=== PATIENT | female | born 1975 | race Caucasian/White ===

== ENCOUNTER → 2019-10-18 | Outpatient (CLI) | payer BC ==
--- NOTE | 2019-10-18 12:39 | Diagnostic Imaging Report ---
INDICATION: Digital 2-D and 3-D screening mammography with CAD. COMPARISON: 04/23/2015 and 03/21/2014. FINDINGS: Subpectoral implants noted. There are scattered fibroglandular densities in the breasts. There is no mass or architectural distortion or suspicious calcifications. IMPRESSION: Stable negative mammograms. BI-RADS Category 1 ACR BI-RADS Category 1: Negative. Result letter will be mailed to the patient. Note: At least 10% of breast cancer is not imaged by mammography. Dictated by: Dictated on workstation # [id number]
== END ==
LOC: RAD 10:01
PROVIDERS: ATTEND Obstetrics & Gynecology
DX: Z12.31 Encounter for screening mammogram for malignant neoplasm of breast (principal)
CPT/HCPCS: 77063; 77067

== ENCOUNTER 2019-12-03 05:34 | Outpatient (RCR) | payer BC ==
[~2019-12-03] VITALS: Ht 172 cm; Wt 150.0 kg
[~2019-12-03 05:34] MED LIST: ATOR10TA PO; BUPR100T15 PO; IBUP-2185 PO; NAPR220C11 PO; NORG1TAB87 PO
[2019-12-05] MEDS ORDERED: IBUP-1780 PO (12:49)
[2019-12-05] MEDS ORDERED: ESTR1TAB27 PO (12:49)
[2019-12-05] MEDS ORDERED: DOCU-143 PO (12:49)
[2019-12-05] MEDS ORDERED: OXYC1TAB87 PO (12:49)
== END 2019-12-03 11:11 | disposition home or self-care (01) ==
LOC: PREOP 05:34
PROVIDERS: ATTEND Obstetrics & Gynecology
DX: Z01.812 Encounter for preprocedural laboratory examination (principal); N92.0 Excessive and frequent menstruation with regular cycle; D64.9 Anemia, unspecified; Z20.828 Contact with and (suspected) exposure to other viral communicable diseases
CPT/HCPCS: 87635

== ENCOUNTER 2019-12-05 11:08 | Day surgery (SDC) | payer BC ==
[2019-12-05] VITALS (9 sets, daily range): BP systolic 129–148; BP diastolic 83–100
[2019-12-05] MEDS ORDERED: MIDAZOLAM 2 MG/2 ML (VERSED) VIAL ONE (11:46)
[2019-12-05] MEDS ORDERED: fentaNYL INJECTION 100 MCG/2 ML AMP ONE (11:46)
[2019-12-05] MEDS ORDERED: LACTATED RINGERS 1,000 ML IV PRN (11:46)
[2019-12-05] MEDS ORDERED: LIDOCAINE PF 2% 5 ML (XYLOCAINE) VIAL ONE ×2 (11:46→11:50)
[2019-12-05] MEDS ORDERED: proPOfol 200 MG/20 ML (DIPRIVAN) VIAL IV ONE (11:50)
[2019-12-05 11:51] LABS: BASOPHILS % (AUTO) 1 % (0-10); EOSINOPHILS # (AUTO) 0.2 10^3/uL (0.0-0.3); EOSINOPHILS % (AUTO) 3 % (0-10); HEMATOCRIT 44 % (35-52); HEMOGLOBIN 14.5 G/DL (11.5-16.0); LYMPHOCYTES # (AUTO) 1.8 X 10^3 (1.0-4.0); LYMPHOCYTES % (AUTO) 30 % (12-44); MEAN CORPUSCULAR HEMOGLOBIN 30 PG (25-34); MEAN CORPUSCULAR HGB CONC 33 G/DL (32-36); MEAN CORPUSCULAR VOLUME 90 FL (80-99); MEAN PLATELET VOLUME 11.1 FL (7.4-10.4); MONOCYTES # (AUTO) 0.3 X 10^3 (0.0-1.0); MONOCYTES % (AUTO) 6 % (0-12); NEUTROPHILS # (AUTO) 3.7 X 10^3 (1.8-7.8); NEUTROPHILS % (AUTO) 61 % (42-75); PLATELET COUNT 217 10^3/uL (130-400)
[2019-12-05] MEDS ORDERED: ceFAZolin INJECTION 1,000 MG in WATER (STERILE) FOR INJECTION 10 ML IV ONE (12:00)
[2019-12-05] MEDS ORDERED: BUP/EPI 0.5% 1:200,000 (SENSORCAINE) 30 ML VIAL ONE (12:10)
[2019-12-05] MEDS ORDERED: SEVOFLURANE (ULTANE) 15 ML INHAL SOLN ONE ×7 (12:40→14:15)
[2019-12-05] MEDS ORDERED: ONDANSETRON 4 MG/2 ML (SDV) Z0FRAN ONE (12:40)
[2019-12-05] MEDS ORDERED: ROCURONIUM 10 MG/ML 5 ML SYRINGE IV ONE ×2 (12:42→13:45)
--- NOTE | 2019-12-05 12:44 | Progress Note-Pre Operative ---
Pre-Operative Progress Note H&P Reviewed The H&P was reviewed, patient examined and no changes noted. Date Seen by Provider: Dec 05, 2019 Time Seen by Provider: 12:43 Date H&P Reviewed: Dec 05, 2019 Time H&P Reviewed: 12:43 Pre-Operative Diagnosis: DUB/Menorrhagia NAYELI GUEVARA MD Dec 05, 2019 12:44
--- NOTE | 2019-12-05 12:44 | Progress Note-Post Operative ---
Post-Operative Progess Note Surgeon (s)/Refractory Technician (s) Surgeon NAYELI GUEVARA MD Refractory Technician: Nicolle Pre-Operative Diagnosis DUB/Menorrhagia Post-Operative Diagnosis same Procedure & Operative Findings Date of Procedure 12/05/19 Procedure Performed/Findings TLH/BSO Anesthesia Type GETA Estimated Blood Loss Estimated blood loss (mL): Minimal Specimens/Packing Specimens Removed TLH/BSO NAYELI GUEVARA MD Dec 05, 2019 12:44
[2019-12-05] MEDS ORDERED: ONDANSETRON 4 MG/2 ML (SDV) Z0FRAN IVP PRN ×2 (12:45→14:30)
[2019-12-05] MEDS ORDERED: PROMETHAZINE INJ 25 MG/ML (PHENERGAN) AMP IM PRN (12:45)
[2019-12-05] MEDS ORDERED: ESTROGENS CONJ INJECTION 25 MG in WATER (STERILE) FOR INJECTION 5 ML IV ONE (12:45)
[2019-12-05] MEDS ORDERED: MEPERIDINE (DEMEROL) INJ 100 MG/ML IM PRN (12:45)
[2019-12-05] MEDS ORDERED: oxyCODONE/APAP 5/325MG (PERCOCET 5) TABLET PO PRN (12:45)
[2019-12-05] MEDS ORDERED: OXYC1TAB87 PO (12:49)
[2019-12-05] MEDS ORDERED: ESTR1TAB27 PO (12:49)
[2019-12-05] MEDS ORDERED: DOCU-143 PO (12:49)
[2019-12-05] MEDS ORDERED: IBUP-1780 PO (12:49)
--- NOTE | 2019-12-05 12:50 | Discharge Inst-Surgical ---
Discharge Inst-Surgical Depart Medication/Instructions New, Converted or Re-Newed RX: RX on Chart Consults/Follow Up Patient Instructions: as directed Orders & Referrals Follow Up Appt: RTC on Saturday December 07, 2019 at 0930 for staple removal Call to make follow up appt. for patient in 4 weeks. Activity: Rest for 24 hours, than as tolerated. Wound Care: May remove Band-Aid tomorrow. Replace as desired. Keep incisions clean and dry. Wash daily with soap and water. Please call in RX to patient pharmacy. Diet: Clear Liquids only if nauseated. shower or tub bathe as desired. No driving for 24 hours, no alcoholic beverages for 24 hours, and nothing per vagina (no tampons, douching, or intercourse) for 8 weeks. Patient to return to the clinic as soon as possible for: Temperature greater than 101F, Severe Pain, Foul discharge from incision or vagina, Excessive Bleeding (more than a period). Activity Activity as Tolerated: No Diet Discharge Diet: No Restrictions NAYELI GUEVARA MD Dec 05, 2019 12:50
[2019-12-05] MEDS ORDERED: HYDROmorphone 2 MG/ML VIAL (DILAUDID) ONE (13:24)
[2019-12-05] MEDS ORDERED: GLYCOPYRROLATE 0.2 MG/ML (ROBINUL) 2 ML VIAL ONE (13:35)
[2019-12-05] MEDS ORDERED: NEOSTIGMINE 3 MG/3 ML VIAL ONE (13:35)
[2019-12-05] MEDS ORDERED: HYDROmorphone 2 MG/ML VIAL (DILAUDID) IV ONE (14:30)
[2019-12-05] MEDS ORDERED: morphine INJ 10 MG/ML 1ML (SYR OR VIAL) IVP ONE (14:30)
[2019-12-05] MEDS ORDERED: KETOROLAC 30 MG/ML VIAL ONE (14:50)
[2019-12-05] MEDS ORDERED: ESTROGENS CONJ IV 25 MG/5 ML (PREMARIN) VIAL ONE (14:50)
[2019-12-05] MEDS ORDERED: WATER (STERILE) FOR INJECTION 10 ML ONE (14:50)
[2019-12-05] MEDS: KETOROLAC 30 MG/ML VIAL IVP SCH ×2 (14:57→20:28)
--- NOTE | 2019-12-05 15:20 | NUR ---
ROMMEL GLYNN admitted to room 3306-1, with an admitting diagnosis of postop RATH with salpingoophorectomy, BSO, and cysto, on 12-05-19 from recovery via cart, accompanied by staff.ROMMEL GLYNN introduced to surroundings, call light, bed controls, phone, TV, temperature control, lights, meal times, smoking policy, visitor policy, side rail policy, bathrooms and showers. Patient Rights given to patient in the handbook. ROMMEL GLYNN verbalizes understanding that [facility] is not responsible for the loss or damage to any personal effects or valuables that are kept in the patients posession during their hospitalization. The following Patient Care Plans were discussed with the patient and s/o: Discharge Planning, pain management, postop care. ROMMEL GLYNN verbalizes understanding of Interdisciplinary Patient Education. Patient and/or family were informed about the Rapid Response Team and its purpose.
[2019-12-05] MEDS: D5 LR IV SOLUTION 1,000 ML IV SCH (18:20)
[2019-12-06 00:30] VITALS: BP 133/85
[2019-12-06] MEDS: KETOROLAC 30 MG/ML VIAL IVP SCH (02:10)
[2019-12-06] MEDS: D5 LR IV SOLUTION 1,000 ML IV SCH ×2 (02:10→05:01)
--- NOTE | 2019-12-06 02:42 | OPERATIVE REPORT ---
DATE OF SERVICE: 12/05/2019 PREOPERATIVE DIAGNOSES: Dysfunctional uterine bleeding and menorrhagia. POSTOPERATIVE DIAGNOSES: Dysfunctional uterine bleeding and menorrhagia. OPERATIVE PROCEDURE: Total laparoscopic hysterectomy with bilateral salpingo-oophorectomy. OPERATIVE DESCRIPTION: With the patient in supine position under satisfactory general anesthesia, she was repositioned in the dorsal lithotomy position in the [facility] and prepped and draped in the usual fashion for abdominal and vaginal surgery. Soto catheter was placed in the urinary bladder after a uterine manipulator was placed using a 6 mm x 8 cm uterine probe and a 30 mm colpotomy ring. Sutures of #1 Vicryl placed at 3 and 9 o'clock position of the cervix to affix the uterus to the manipulator. The patient was brought in low dorsal lithotomy position. A 12 mm incision was made 10 cm above the umbilicus and a stab wound in the superior margin of the umbilicus. An effort was made to place the Veress needle through the umbilical incision that was unsuccessful and then an attempt in the upper midline incision with the Veress needle was successful. The abdomen was insufflated with 2.4 liters of carbon dioxide. This patient was relatively rotund and with a thick abdominal wall, decision was made to put a 5 mm laparoscopic port in the left upper quadrant to visualize the placement of the larger operative ports. With the 5 mm port in position, an 8 mm port was placed 9 cm lateral to the umbilicus at a level approximately 4 cm above the umbilicus on each side. A 12 mm port was placed through the supraumbilical incision under direct vision as well. With the ports in place, the patient was placed in Trendelenburg allowing the bowel spill out of the pelvis. The operative column was advanced on the patient and docked and instruments were placed in right lateral ports and I retired to the da Jacquelin console. At the console using the vessel sealer on the right and bipolar fenestrated grasper on the left, the pelvis was first examined. The patient had evidence of remote tubal sterilization. There was a cystic mass involving the left ovary that appeared benign. There were no exophytic lesions in the pelvis. The uterus was quite mottled in appearance and boggy consistent with adenomyosis. The right ovary appeared normal and somewhat atretic. The right ureter could be seen peristalsing clearly. The left ureter could be vaguely same deep in the pelvis. The laparoscope was rotated. The appendix was seen. It was a normal vermiform appendix. Laparoscope was brought back to the pelvis. The uterus was elevated, putting the right IP ligament under tension and then using the vessel sealer, the IP ligament was clamped, cauterized and divided that was continued stepwise across the mesovarium and then across the round ligament, the broad ligament, and down onto the cardinal ligament. Same procedure performed on the left, allowing for removal of both tubes and ovaries eventually with the uterus. The anterior lower uterine segment peritoneum was divided with EndoShears in place of the vessel sealer on the right. The anterior lower uterine segment was exposed by dissecting the bladder down off of the junction of the cervix and the vaginal wall. Incision was made onto the colpotomy ring at 12 o'clock position and incision was continued circumferentially until the entire colpotomy ring was exposed. The colpotomy incision was then extended circumferentially until the entire ring was that is why she will need it once. The uterus was extracted through the vagina with the tubes and ovaries still attached. Vaginal cuff was now closed with a single suture of V-Loc barbed suture starting first on the right angle and continuing all the way across the vaginal cuff, taking care to ensure inclusion of the uterine vessel pedicles bilaterally. With hemostasis complete, the vaginal cuff completely reapproximated. The procedure was terminated. There was a small amount of blood that was left in the cul-de-sac. This probably amounted to less than 30 to 50 mL. The operative instruments were removed under direct vision as were the ports. The abdomen was evacuated of insufflating gas in the process of removing the ports. The skin incisions were stapled after closing the fascia at the supraumbilical incision with a [id number]-[id number] suture of 2-0 Vicryl. The patient was brought to a low level of Trendelenburg and then cystoscopy was performed using LR as a distending medium. The bladder wall was intact. Both ureters were visualized and both were effluxing urine freely into the bladder. The cystoscope was removed. Speculum was placed in the vagina. The vaginal cuff was examined. It was completely reapproximated and completely hemostatic. Sponge and needle counts were correct. Estimated blood loss was minimal. The patient was now uneventfully awakened from her general anesthesia and transferred to recovery room in stable condition. Job ID: [id number] DocumentID: [id number] Dictated Date: 12/05/2019 14:18:37 Shot Core Drill Operator Helper Date: 12/06/2019 00:48:49 Dictated By: NAYELI GUEVARA MD
[2019-12-06 04:35] VITALS: BP 116/76
--- NOTE | 2019-12-06 07:17 | Anesthesia-General Post-Op ---
General Patient Condition Mental Status/LOC: Same as Preop Cardiovascular: Satisfactory Nausea/Vomiting: Absent Respiratory: Satisfactory Pain: Controlled Complications: Absent Post Op Complications Complications None Follow Up Care/Instructions Patient Instructions None needed. Anesthesia/Patient Condition Patient Condition Patient is doing well, no complaints, stable vital signs, no apparent adverse anesthesia problems. No complications reported per nursing. DOUG MADRIGAL CRNA Dec 06, 2019 07:16
--- NOTE | 2019-12-06 07:56 | Progress Note ---
Standard Progress Note Progress Notes/Assess & Plan Date Seen by a Provider: Dec 06, 2019 Time Seen by a Provider: 07:55 Progress/Assessment & Plan This patient is without complaint. She is ambulating, tolerating oral intake well and has good pain control. She has not voided since her catheter removed. Vital Signs Date Time Temp Pulse Resp B/P (MAP) Pulse Ox O2 Delivery O2 Flow Rate FiO2 12/06/19 04:35 36.8 85 20 116/76 (89) 96 Room Air 12/06/19 00:30 36.7 93 18 133/85 (101) 96 Room Air 12/05/19 20:28 97 Room Air 12/05/19 20:28 36.5 96 20 129/83 (98) 96 Room Air 12/05/19 16:10 36.7 92 20 139/92 (108) 96 Room Air 12/05/19 15:49 97 Room Air 12/05/19 15:20 Room Air 12/05/19 15:20 37.0 89 20 144/98 (113) 97 Room Air 12/05/19 15:15 36.4 14 138/95 (109) 95 Room Air 12/05/19 15:05 16 147/96 (113) 95 Room Air 12/05/19 15:05 Room Air 12/05/19 14:55 16 139/98 (112) 99 OxyMask 4 12/05/19 14:55 OxyMask 2 12/05/19 14:45 OxyMask 4 12/05/19 14:45 14 139/98 (112) 100 OxyMask 6 12/05/19 14:35 14 143/91 (108) 100 OxyMask 8 12/05/19 14:35 OxyMask 6 12/05/19 14:25 OxyMask 10 12/05/19 14:25 36.3 16 148/100 (116) 100 OxyMask 10 I & O 12/06/19 07:00 Intake Total 3465 ml Output Total 4560 ml Balance -1095 ml Vital signs are stable. Patient is afebrile. Abdomen is benign. Extremities show no clubbing or cyanosis. There is no Homans sign. Assessment and plan postoperative day number 1 doing well. Plan is for discharge home with follow-up in clinic Final Diagnosis Dysfunctional uterine bleeding/menorrhagia NAYELI GUEVARA MD Dec 06, 2019 07:56
[2019-12-06 08:00] VITALS: BP 126/70
--- NOTE | 2019-12-06 08:00 | NUR ---
A.M. ASSESSMENT COMPLETED. VSS. DAUGHTER AT BEDSIDE. NO VOID YET.
[2019-12-06] MEDS ORDERED: IBUPROFEN 800 MG (MOTRIN) TAB PO ONE ×2 (08:01→08:46)
--- NOTE | 2019-12-06 08:15 | NUR ---
OUT TO AMBULATE IN THE HALLWAY. MOVES WELL. DAUGHTER AT SIDE.
[2019-12-06] MEDS ORDERED: IBUPROFEN 800 MG (MOTRIN) TAB PO SCH ×3 (08:45→18:00)
[2019-12-06] MEDS ORDERED: ESTRADIOL 1 MG TAB (ESTRACE) PO SCH (09:00)
[2019-12-06] MEDS ORDERED: DOCUSATE SODIUM 100 MG (COLACE) CAP PO SCH (09:00)
--- NOTE | 2019-12-06 10:00 | NUR ---
VOIDED 500 CC CLEAR YELLOW URINE.
--- NOTE | 2019-12-06 10:52 | NUR ---
DISCHARGE INSTRUCTIONS REVIEWED WITH COPY TO PT. STATES UNDERSTANDING OF ALL INSTRUCTIONS AND NEED TO F/U SCHEDULED AND NEEDED.
[2019-12-06 11:05] VITALS: BP 126/70
--- NOTE | 2019-12-06 11:05 | NUR ---
DISMISSED FROM [facility]IA W/C IN STABLE CONDITION TO FAMILY [facility] BY DAUGHTER AND LULA NATARAJAN RN.
== END 2019-12-06 11:05 | disposition home or self-care (01) ==
LOC: SDC 11:08 → WS 15:14 → SDC 12-06 11:05
PROVIDERS: ATTEND Obstetrics & Gynecology
DX: D25.1 Intramural leiomyoma of uterus (principal); N80.0 Endometriosis of uterus; N72 Inflammatory disease of cervix uteri; N83.202 Unspecified ovarian cyst, left side; N83.8 Other noninflammatory disorders of ovary, fallopian tube and broad ligament; I10 Essential (primary) hypertension; F41.9 Anxiety disorder, unspecified; F32.9 Major depressive disorder, single episode, unspecified; E66.01 Morbid (severe) obesity due to excess calories; Z68.43 Body mass index [BMI] 50.0-59.9, adult; Z79.899 Other long term (current) drug therapy; Z91.048 Other nonmedicinal substance allergy status; Z88.2 Allergy status to sulfonamides
CPT/HCPCS: 36415; 85025; 86850; 86900; 86901; 87081; 88307; 94664

== ENCOUNTER → 2020-07-17 | Outpatient (CLI) | payer BC ==
[~2020-07-17] MED LIST changes: +BARIUM for suspension 96% w/w (Vanilla Silq Medium Density) PO ONE; +BARIUM for suspension 98% w/w (Vanilla Silq High Density) PO ONE; +DOCU-143 PO; +ESTR1TAB27 PO; +IBUP-1780 PO; +OXYC1TAB87 PO
--- NOTE | 2020-07-17 13:13 | Diagnostic Imaging Report ---
INDICATION: Preop for weight loss surgery. The patient ingested effervescent crystals as well as thin and thick barium and imaging of the esophagus, stomach and proximal small bowel was performed. 1 minute and 26 seconds of fluoroscopic time was utilized. Preliminary radiograph of the abdomen is unremarkable. Esophagus has a smooth contour. No mass or stricture is identified. There was some mild gastroesophageal reflux demonstrated on multiple occasions. No hiatal hernia is identified. Stomach is normal in contour. The duodenal bulb is without deformity. IMPRESSION: Mild gastroesophageal reflux. The study is otherwise unremarkable. Dictated by: Dictated on workstation # [id number]
== END ==
LOC: RAD 10:02
PROVIDERS: ATTEND Surgery
DX: Z01.812 Encounter for preprocedural laboratory examination (principal); K21.9 Gastro-esophageal reflux disease without esophagitis
CPT/HCPCS: 74246

== ENCOUNTER → 2020-12-24 | Outpatient (CLI) | payer BC ==
[~2020-12-24] MED LIST changes: -BARIUM for suspension 96% w/w (Vanilla Silq Medium Density) PO ONE; -BARIUM for suspension 98% w/w (Vanilla Silq High Density) PO ONE
--- NOTE | 2020-12-25 09:06 | Diagnostic Imaging Report ---
INDICATION: Routine screening. COMPARISON is made with prior mammograms from 10/18/2019 and told 04/23/2015. 2-D and 3-D bilateral screening mammography was performed with CAD. Subpectoral breast implants are noted bilaterally. Implant contours are smooth. There are scattered fibroglandular densities in both breasts. Scattered benign calcifications are noted bilaterally. No mass or malignant-appearing microcalcifications are seen. Axillae are unremarkable. IMPRESSION: BI-RADS Category 2 No mammographic features suspicious for malignancy are identified. ACR BI-RADS Category 2: Benign findings. Result letter will be mailed to the patient. Note: At least 10% of breast cancer is not imaged by mammography. Dictated by: Dictated on workstation # [id number]
== END ==
LOC: RAD 15:00
PROVIDERS: ATTEND Nurse Practitioner Family
DX: Z12.31 Encounter for screening mammogram for malignant neoplasm of breast (principal); Z98.82 Breast implant status
CPT/HCPCS: 77063; 77067

== ENCOUNTER → 2022-02-16 | Outpatient (CLI) | payer BC ==
--- NOTE | 2022-02-16 12:50 | Diagnostic Imaging Report ---
INDICATION: Routine screening. COMPARISON: 12/24/2020 and 10/18/2019. TECHNIQUE: 2D and 3D bilateral screening mammography was performed with CAD. FINDINGS: Bilateral subpectoral breast implants are again noted. The implant contours remain smooth without evidence of extracapsular rupture. Scattered fibroglandular densities in both breasts are noted. No mass or malignant-appearing microcalcifications are seen. The axillae are unremarkable. IMPRESSION: No mammographic features suspicious for malignancy are identified. ACR BI-RADS Category 2: Benign findings. Result letter will be mailed to the patient. Note: At least 10% of breast cancer is not imaged by mammography. Dictated by: Dictated on workstation # [id number]
== END ==
LOC: RAD 07:30
PROVIDERS: ATTEND Obstetrics & Gynecology
DX: Z12.31 Encounter for screening mammogram for malignant neoplasm of breast (principal)
CPT/HCPCS: 77063; 77067